=== PATIENT | female | born 1975 | race Asian ===

== ENCOUNTER 2019-01-30 12:49 | Emergency (ER) | payer OTHER ==
[~2019-01-30] VITALS: Ht 160 cm; Wt 70.5 kg
[2019-01-30] MEDS ORDERED: AMLO2.5T4 PO (13:00)
[2019-01-30] MEDS ORDERED: ASPI81 PO (13:00)
[2019-01-30] MEDS ORDERED: SIMV-259 PO (13:00)
[2019-01-30 14:05] VITALS: BP 143/92
== END 2019-01-30 14:12 | disposition home or self-care (01) ==
LOC: EMS 12:51
DX: F41.9 Anxiety disorder, unspecified (principal); R06.02 Shortness of breath; I10 Essential (primary) hypertension; E78.00 Pure hypercholesterolemia, unspecified; Z56.3 Stressful work schedule; Z88.2 Allergy status to sulfonamides; Z91.013 Allergy to seafood; Z79.82 Long term (current) use of aspirin
CPT/HCPCS: 93005